=== PATIENT | female | born 2000 | race Two or more races ===

== ENCOUNTER 2024-06-08 13:02 | Outpatient (AMB) | payer OTHER, SELFPAY ==
--- NOTE | 2024-06-08 13:11 | AM.OFFWIN_ITS ---
Intake Vital Signs 06/08/24 13:12 Height 5 ft 5 in Weight 126 lb BMI 21.0 BP 120/72 Blood Pressure Location Lt brachial Position Sitting Pulse 114 H Pulse Source Pulse Oximeter Temp 101.8 F H Temp Source Oral Pulse Oximetry (%) 99 Oxygen Delivery Method Room Air Intake Visit Reasons: [employer]ED [employer], cough, body ache Intake Note: Pt is here today c/o cough,bodyaches and chills x1wk Allergies No Known Allergies Allergy (Verified 06/08/24 13:16) HPI SK[employer]ED [employer]SING [employer], cough, body ache HPI Details Patient is a 23-year-old female with no pertinent past medical history given who comes to the walk-in clinic complaining of symptoms starting about a week ago with body aches, chills and fatigue, and sore throat. She states that she took [id number] medication for fever and body aches, and those symptoms have subsided, however she has developed an increasingly reactive cough over the last few days. She has continued to work, but left work early today due to symptoms, which she states the worse symptom is that she lost her voice. She denies current shortness of breath or chest pain, obvious chest congestion, nausea vomiting or diarrhea, abdominal or flank pain, weakness or dizziness or vertigo, malaise, or other significant associated symptoms. Home COVID test was negative. She denies known sick contacts. 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 Review of Systems Const All systems reviewed & are unremarkable except as noted in HPI and below Physical Exam Vital Signs: Last Vital Signs Temp 101.8 F H 06/08/24 13:12 Pulse 114 H 06/08/24 13:12 BP 120/72 06/08/24 13:12 Pulse Ox 99 06/08/24 13:12 Oxygen Delivery Method Room Air 06/08/24 13:12 BMI result Body Mass Index 21.0 Const General: cooperative, comfortable, alert, awake, Physically active, ill appearing, tired appearing and well groomed; No acute distress, anxious, diaphoretic, intoxicated appearing or poor hygiene Nutritional Appearance: average body habitus Orientation/consciousness: patient oriented x3 Limitations: no limitations HEENT Head: Yes normal to inspection, Yes normocephalic and Yes atraumatic Ears: hearing grossly normal bilaterally, external ears normal, TM's normal bilaterally and EAC's normal General nose exam: Normal external nose present, Normal nares present, No nasal polyps present, Normal nasal mucous membranes and turbinates present and No nasal discharge present Face and sinus: Yes normal facial exam, Yes sinuses nontender and Yes face symmetric Mouth: Normal oral and palatal mucosa present, lip normal and tongue normal Throat: Yes posterior oropharynx normal, Yes abnormal tonsil (mildly erythematous bilaterally), No peritonsillar mass, No postnasal drainage, No uvular edema and No cobblestoning Eyes General: appearance normal, both eyes and all related structures Neck Neck: Yes normal visual inspection, Yes full ROM, Yes no lymphadenopathy, Yes trachea midline, Yes supple and No anterior neck swelling Chest Chest palpation & inspection: normal palpation of entire chest wall Resp Effort & Inspection: normal respiratory effort, able to speak in complete sentences, normal respiratory pattern, no audible wheezes, Actively coughing (Occasional) Quality: dry, no grunting, not labored, no nasal flaring, no pursed lip breathing, no respiratory distress, no retractions, no stridor, not tachypneic, no tracheal deviation, no tripod positioning, no use of accessory muscles, No prolonged expiratory phase and symmetric chest movement Auscultation: clear to auscultation bilaterally, normal I/E ratio, crackles on the right, no rales, no rhonchi, no wheezes, lung sounds not diminished and No rub present Cardio Palpation: normal PMI Rate: regular rate Rhythm: regular rhythm Heart sounds: S1 normal heart sound present and S2 normal heart sound present Skin Other: Good color, warm and dry Neuro General: patient oriented x3 Psych Appearance: grossly normal Mental Status: mental status grossly normal Speech and movement: Normal speech and movement present Affect: normal affect Attitude: cooperative Thought process: Normal thought process present Insight: Good insight present (Psych) Judgement: Good judgement present (Psych) Results Reviewed Results Reviewed: Haziness to the right lower lobe on plain film chest x-ray in the walk-in office today, consistent with right lower lobe pneumonia. Assessment & Plan Assessment & Plan (1) Pneumonia: Code(s): J18.9 - Pneumonia, unspecified organism Qualifiers: Pneumonia type: due to unspecified organism Laterality: right Lung location: lower lobe of lung Qualified Code(s): J18.9 - Pneumonia, unspecified organism Plan: Patient is a 23-year-old previously healthy female who comes to the walk-in clinic today a week into viral symptoms now presenting right lower lobe pneumonia, which is visualized on plain film chest x-ray today on my wet read. She is not short of breath, she has an adequate respiratory status, and oxygen saturation is 99% on room air. She has been tolerating symptoms, and even went to work today, however she reports that her main issue was that she was losing her voice and she reports getting a reactive cough frequently, which makes sleeping difficult. Therefore even though she was not wheezing in the office, but did have an occasional reactive cough, I did write her for a course of oral steroids along with empiric coverage for community-acquired pneumonia with both Augmentin and a macrolide. Her home COVID test was negative, and PCR testing for flu COVID and RSV is pending. 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 Orders: Orders XR chest 2V 06/08/24 R05.9 - Cough, unspecified SARS-CoV2/FLU/RSV 06/08/24 J06.9 - Acute upper respiratory infection, unspecified Medications: New prednisone 40 mg (2 x 20 mg) PO DAILY 5 days 10 tabs 0RF amoxicillin-pot clavulanate 875-125 mg 1 tab PO BID 10 tabs 0RF azithromycin take 500 mg today (day 1), then 250 mg for 4 days (days 2-5) PO 6 tabs 0RF Coding Level of Care Code New Pt Level 4 (05686) Diagnoses Pneumonia of right lower lobe due to infectious organism J18.9 Pneumonia type: due to unspecified organism Laterality: right Lung location: lower lobe of lung
[2024-06-08 13:12] VITALS: BP 120/72; PULSE 114; TEMP 38.8; O2SAT 99; BMI 21.0
== END 2024-06-08 14:34 | disposition home or self-care (01) ==
PROVIDERS: Visit Provider Physician Assistant Medical
DX: J18.9 Pneumonia, unspecified organism (principal)

== ENCOUNTER 2024-06-08 13:02 | Outpatient (REF) | payer OTHER, SELFPAY ==
--- NOTE | ~2024-06-08 | XR_ITS ---
EXAMINATION: XR CHEST CLINICAL INFORMATION: Cough. COMPARISON: None available. TECHNIQUE: 2 views of the chest were obtained. FINDINGS: History of right lower lobe airspace opacity, consistent with pneumonia. No pleural effusion or pneumothorax. Unremarkable cardiomediastinal silhouette. No acute osseous abnormality. XR/XR chest 2V IMPRESSION: Right lower lobe pneumonia. Electronically signed by: Roland Hough MD 06/09/2024 09:[address] [facility] [place]
== END 2024-06-08 13:03 | disposition home or self-care (01) ==
LOC: HO.HMGCX 13:02
PROVIDERS: Visit Provider Physician Assistant Medical
DX: R05.9 Cough, unspecified (principal)
CPT/HCPCS: 71046

== ENCOUNTER 2024-06-08 14:23 | Outpatient (REF) | payer OTHER, SELFPAY ==
[2024-06-08 16:57] LABS: Influenza A PCR NEGATIVE (Negative); Influenza B PCR NEGATIVE (Negative); Resp Syncy Virus RNA Qual PCR NEGATIVE (Negative); SARS COV2 PCR INHOUSE NEGATIVE (Negative)
== END 2024-06-08 14:24 | disposition home or self-care (01) ==
LOC: HO.LAB 14:23
PROVIDERS: Visit Provider Physician Assistant Medical
DX: J06.9 Acute upper respiratory infection, unspecified (principal)
CPT/HCPCS: 0241U